=== PATIENT | male | born 1945 | race African-American/Black ===

== ENCOUNTER 2019-09-22 04:08 | Emergency (ER) | payer MEDICARE, OTHER ==
[~2019-09-22] VITALS: Ht 172.7 cm; Wt 65.8 kg
[2019-09-22 04:10] VITALS: BP 142/89
--- NOTE | 2019-09-22 04:30 | NUR ---
EMT AT BEDSIDE FOR WOUND CARE
--- NOTE | 2019-09-22 04:35 | NUR ---
XRAY AT BEDSIDE
[2019-09-22] MEDS ORDERED: LIDOCAINE /MPF 1% VIAL 5 ML VIAL ONE (04:46)
--- NOTE | 2019-09-22 05:49 | NUR ---
Patient discharged to home in stable condition. Written and verbal after care instructions given. Patient verbalizes understanding of instruction. Pt ambulated with steady gait.
== END 2019-09-22 05:50 | disposition home or self-care (01) ==
LOC: ER 04:10
DX: S61.217A Laceration without foreign body of left little finger without damage to nail, initial encounter (principal); Z60.2 Problems related to living alone; W26.8XXA Contact with other sharp object(s), not elsewhere classified, initial encounter; Y93.89 Activity, other specified; Y92.89 Other specified places as the place of occurrence of the external cause; Y99.8 Other external cause status
CPT/HCPCS: 12001; 73140; 99283; A6403 ×3; J3490